=== PATIENT | male | born 1965 | race Caucasian/White ===

== ENCOUNTER 2021-07-17 14:36 | Outpatient (REF) | payer OTHER, SELFPAY | END 2021-07-17 14:37 | disposition home or self-care (01) | LOC: HO.CT 14:36 | PROVIDERS: PCP Internal Medicine; Visit Provider Physician Assistant Medical | DX: Z12.2 Encounter for screening for malignant neoplasm of respiratory organs (principal); Z87.891 Personal history of nicotine dependence | CPT/HCPCS: G0296 ==

== ENCOUNTER 2022-01-07 06:42 | Outpatient (REF) | payer OTHER, SELFPAY ==
[2022-01-07 06:57] LABS: MANUAL DIFF FLAG NO
[2022-01-07 07:56] LABS: Basophils Percent Auto 0.9 % (0-2); Eosinophils Absolute Auto 0.1 X10*3/uL (0.0-0.4); Eosinophils Percent Auto 2.2 % (0-4); Hematocrit 40.1 % (42.0-52.0); Hemoglobin 13.7 g/dl (14.0-18.0); Imm Gran Abs Auto 0.01 X10*3/uL (0.00-0.03); Imm Gran Pct Auto 0.2 % (0.0-0.4); Immature Retic Fraction 7.5 % (2.3-13.4); Lymphocytes Absolute Auto 1.7 X10*3/uL (1.2-4.9); Lymphocytes Percent Auto 36.8 % (20-40); Mean Corpuscular HGB Conc 34.2 g/dl (31.0-36.0); Mean Corpuscular Hemoglobin 31.3 pg (27.0-33.0); Mean Corpuscular Volume 91.6 fL (80.0-98.0); Mean Platelet Volume 10.2 fL (9.4-12.4); Monocytes Absolute Auto 0.4 X10*3/uL (0.1-1.2); Monocytes Percent Auto 9.2 % (2-11); Neutrophils Absolute Auto 2.4 x10*3/uL (2.0-8.3); Neutrophils Percent Auto 50.7 % (45-73); Platelet Count 245 X10*3/uL (160-400); Red Blood Count 4.38 X10*6/uL (4.60-5.80); Red Cell Distribution Width 12.4 % (11.0-16.0); Reticulocyte Percent 1.8 % (0.5-1.8); Reticulocytes Absolute 0.078 X10*6/uL (0.026-0.095); White Blood Count 4.7 X10*3/uL (4.8-10.8)
[2022-01-07 08:18] LABS: Alanine Aminotransferase 20 U/L (0-40); Alkaline Phosphatase 75 U/L (39-117); Anion Gap 14 (12-20); Aspartate Amino Transferase 15 U/L (5-37); Bilirubin Total 0.5 mg/dL (0.0-1.0); Blood Urea Nitrogen 14 mg/dL (9-16); Calcium 8.9 mg/dL (8.4-10.2); Carbon Dioxide 23 mmol/L (22-29); Chloride 109 mmol/L (96-108); Cholesterol 218 mg/dL; Estimated Glomerular Filt Rate > 60; Glucose Random 91 mg/dL (60-115); HDL Cholesterol 54 mg/dL; Iron 102 mcg/dL (45-160); LDL Cholesterol Calculated 148 mg/dl; Percent Iron Saturation 32 % (15-50); Potassium 4.7 mmol/L (3.3-5.1); Sodium 141 mmol/L (135-145); Total Iron Binding Capacity 318 mcg/dL (228-428); Total Protein 6.6 g/dL (6.5-8.0); Triglycerides 83 mg/dL; Unsaturated Iron Binding 216 ug/dL
[2022-01-07 08:42] LABS: Ferritin 143 ng/mL (20-250); Free T4 (Free Thyroxine) 0.93 ng/dL (0.71-1.85); Prostate Specific Antigen Scr 0.18 ng/mL (<0.05-4.0)
[2022-01-07 08:47] LABS: Folate 6.3 ng/mL (> or = 4.0); Vitamin B12 271 pg/mL (200-900)
== END 2022-01-07 06:43 | disposition home or self-care (01) ==
LOC: HO.LAB 06:42
PROVIDERS: PCP Internal Medicine; Visit Provider Internal Medicine
DX: Z12.5 Encounter for screening for malignant neoplasm of prostate (principal); E78.00 Pure hypercholesterolemia, unspecified; E78.1 Pure hyperglyceridemia; D64.9 Anemia, unspecified
CPT/HCPCS: 36415; 80053; 80061; 82607; 82728; 82746; 83540; 84153; 84439; 84443; 85025; 85045

== ENCOUNTER 2022-01-08 07:45 | Outpatient (REF) | payer OTHER, SELFPAY ==
[2022-01-08 08:10] LABS: Appearance Urine Clear; Color Urine Yellow; Glucose Urine UA Negative (Negative); Leukocyte Esterase Urine Negative (Negative); Nitrite Urine Negative (Negative); PH 5.5 (5.0-9.0); Specific Gravity - Urine >= 1.030 (1.005-1.025); Urine Blood Negative (Negative); Urine Ketones Negative (Negative); Urine Protein Negative (Neg-Trace)
[2022-01-08 08:15] LABS: Bacteria Urine None Seen (None Seen); Hyaline Casts Urine 0-2 /LPF (0-2); RBC Urine 0-2 /HPF (0-2); Squamous Epithelial Cell Urine 0-2 /HPF (0-2); WBC Urine 0-5 /HPF (0-5)
== END 2022-01-08 07:46 | disposition home or self-care (01) ==
LOC: HO.LNP 07:45
PROVIDERS: Visit Provider Internal Medicine
DX: E78.1 Pure hyperglyceridemia (principal)
CPT/HCPCS: 81001

== ENCOUNTER 2023-01-05 09:06 | Outpatient (AMB) | payer OTHER, SELFPAY ==
--- NOTE | 2023-01-05 09:16 | A.OFFPC_ITS ---
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 Hand: Not Required per policy Accompanied by: Self / Same As Patient Allergies No Known Allergies Allergy (Verified 01/05/23 09:17) Medication List - Last Reconciled 01/05/23 by Damaris Vazquez MD No Known Home Meds Tobacco use date assessed: 01/05/23 Dental Screening Dental Screen Date: 01/05/23 Did you have a dental visit in the last 12 months?: No Did you have a dental problem in the last 6 months where you did not have access to dental care?: No Was dental information given to patient?: Patient has dentist HPI Annual Exam HPI Details 57-year-old overweight male with a histo ry of anemia hypercholesterolemia coming in for follow-up last seen in December 2021. Colonoscopy up-to-date [address] [facility] Medical History Personal history of nicotine dependence Tubular adenoma of colon (~2018) Anemia Hypertriglyceridemia Overweight (BMI 25.0-29.9) Surgical History History of colonoscopy Family History Mother Lung cancer Father Glioblastoma Brother No problems noted. Sister No problems noted. Sister No problems noted. Daughter No problems noted. Daughter No problems noted. Social History (Updated 01/05/23 @ 09:52 by Damaris Vazquez MD) Housing: Apartment Alcohol intake: current Patient Tobacco Use Status: Former Tobacco user Quit Date: 2018 Tobacco use type: Cigarette Years Smoked: (onset 14yo, 1ppd x 39yrs, 35+PYH, quit 2019) e-Cigarette/Vaping Use: Never Used Second Hand Smoke Exposure: No service: No Current occupational status: employed Cognitive needs: No Hearing needs: No Vision needs: Yes Questionnaire PHQ-9 Over the last 2 weeks, how often have you been bothered by any of the following problems? 1. Little interest or pleasure in doing things: not at all 2. Feeling down, depressed, or hopeless: not at all 3. Trouble falling or staying asleep, or sleeping too much: not at all 4. Feeling tired or having little energy: not at all 5. Poor appetite or overeating: not at all 6. Feeling bad about yourself - or that you are a failure or have let yourself or your family down: not at all 7. Trouble concentrating on things, such as reading the newspaper or watching television: not at all 8. Moving or speaking so slowly that other people could have noticed. Or the opposite - being so fidgety or restless that you have been moving around a lot more than usual: not at all 9. Thoughts that you would be better off or of hurting yourself in some way: not at all Total score: 0 Depression Screening Interpretation: Negative Source: Developed by Drs. Guerrero Lin, Zuleika Ann, Nino Moreno and colleagues, with an educational juan carlos from [employer]. Thrive Questionnaire Date Thrive assessed: 01/05/23 I am a: Patient What is your living situation today?: I have a steady place to live Within the past 12 months, did the food you bought not last and you didn't have the money to get more?: Never true Within the past 12 months, did you worry whether your food would run out before you got money to buy more?: Never true Do you have trouble paying for medicines?: No Do you have trouble getting transportation to medical appointments?: No Do you have trouble paying your heating and electricity bill?: No Do you have trouble taking care of your child, family member or friend?: No Do you have trouble with day-to-day activities such as bathing, preparing meals, shopping, managing finances, etc.?: No Are you currently unemployed and looking for a job?: No Are you interested in more education?: No Please select the resources that you would like help with: None AUDIT C Alcohol Use Questionnaire (AUDIT-C) 1. How often do you have a drink containing alcohol?: 2-3 times a week 2. How many drinks containing alcohol do you have on a typical day when you are drinking?: 3 or 4 3. How often do you have six or more drinks on one occasion?: Never Total Score: 4 FLORA-7 AMB Questionnaire FLORA-7 Date FLORA - 7 assessed: 01/05/23 Feeling nervous, anxious, or on edge: 0 = Not at all Not being able to stop or control worryin = Not at all Worrying too much about different things: 0 = Not at all Trouble relaxin = Not at all Being so restless that it is hard to sit still: 0 = Not at all Becoming easily annoyed or irritable: 0 = Not at all Feeling afraid as if something awful might happen: 0 = Not at all Total FLORA-7 score (0-4 normal; 5-9 mild; 10-14 moderate; 15-21 severe): 0 Source: Developed by Drs. Guerrero Lin, Zuleika Ann, Nino Moreno and colleagues, with an educational juan carlos from [employer]. Review of Systems Const Denies poor appetite and Denies weakness Eyes Denies no additional complaints ENT Reports Normal hearing present, Denies dizziness, Denies nasal congestion, Denies tinnitus and Denies sore throat Card Denies chest pain, Denies syncope, Denies rapid heart rate and Denies dyspnea Resp Denies cough and Denies dyspnea GI Denies change in stool character, Reports constipation, Denies diarrhea, Denies nausea and Denies vomiting Denies dysuria and Denies urinary frequency Neuro Reports Normal hearing present, Denies confusion, Denies dizziness, Denies syncope and Denies weakness Psych Denies confusion Physical exam (Primary Care) Vital Signs: Last Vital Signs Pulse 78 01/05/23 09:17 BP 138/82 01/05/23 09:17 Pulse Ox 99 01/05/23 09:17 Oxygen Delivery Method Room Air 01/05/23 09:17 BMI result Body Mass Index 26.4 Tobacco/Smoking Status: Tobacco use Status Tobacco use date assessed 01/05/23 01/05/23 09:18 Patient Tobacco Use Status Former Tobacco user 01/05/23 09:18 Tobacco use type Cigarette 01/05/23 09:18 e-Cigarette/Vaping Use Never Used 01/05/23 09:18 PHQ-9: PHQ-9 Score PHQ-9: Total score 0 01/05/23 09:27 Depression Screening Interpretation: Negative Thrive Assessment: Date of Thrive Assessment Date Thrive assessed 01/05/23 01/05/23 09:18 Const General: No confusion Orientation/consciousness: No confusion HENMT Head: Yes normocephalic Ears: external ears normal and TM's normal bilaterally Face and sinus: Yes normal facial exam Mouth: moist mucous membranes Throat: Yes tonsils normal Eyes Conjunctivae: conjunctivae normal Pupils: Equal, round and reactive pupils present and Pupil accommodation reflex normal Direct Ophthalmoscopy: normal light reflex Neck Neck: No lymphadenopathy Thyroid: Thyroid normal Chest Chest palpation & inspection: normal inspection of the chest Resp Effort & Inspection: normal respiratory effort and no audible wheezes Auscultation: clear to auscultation bilaterally, no crackles, no wheezes and lung sounds not diminished Cardio Rate: regular rate Rhythm: regular rhythm Peripheral pulses: radial pulses present and dorsalis pedis present GI Other: guaiac negative, prostrate N Palpation (GI): no masses Auscultation: normal bowel sounds and normoactive bowel sounds Rectal Exam - Male: Yes deferred Skin General skin exam: no rashes or lesions noted Rashes: no rashes Neuro General: No confusion Cranial nerves: Yes Equal, round and reactive pupils present and Yes Normal hearing present Cognition (Neuro): normal cognition Gait exam (Neuro): Normal gait present Motor exam (neuro): 5/5 motor strength present throughout Deep tendon reflexes (DTR's): Right brachioradialis reflex intensity grade: 2+, Left brachioradialis reflex intensity grade: 2+, Right patellar reflex intensity grade: 2+ and Left patellar reflex intensity grade: 2+ Extrem General: No edema Assessment and Plan Assessment & Plan (1) Annual physical exam: Code(s): Z00.00 - Encounter for general adult medical examination without abnormal findings (2) Anemia: Code(s): D64.9 - Anemia, unspecified Plan: Continue to monitor (3) Hypertriglyceridemia: Code(s): E78.1 - Pure hyperglyceridemia Plan: Avoid fried foods, chicken skin, eggs, butter margarine, pastries and meat. Be it pork or beef they have a lot of cholesterol LDL goal of less than 130 and triglyceride of less than 150 (4) Personal history of nicotine dependence: Comment: (Former smoker, onset 14, 1ppd x 39yrs, 35PYH, quit 2019, +fam hx lung ca) Code(s): Z87.891 - Personal history of nicotine dependence Plan: Patient is advised to have lung cancer screening. (5) Plantar fasciitis, bilateral: Code(s): M72.2 - Plantar fascial fibromatosis Plan: Discussed about the problem as well as conservative and aggressive measures. Orders: Orders Complete Blood Count Auto Diff 01/02/23 D64.9 - Anemia, unspecified IRON PROFILE 01/02/23 D64.9 - Anemia, unspecified Reticulocyte Count 01/02/23 D64.9 - Anemia, unspecified Free T4 (Free Thyroxine) 01/02/23 D64.9 - Anemia, unspecified Comprehensive Met. Panel 01/02/23 D64.9 - Anemia, unspecified Lipid Panel 01/02/23 E78.00 - Pure hypercholesterolemia, unspecified, E78.1 - Pure hyperglyceridemia Prostate Specific Antigen Scr 01/02/23 E78.1 - Pure hyperglyceridemia Vitamin B12 and Folate 01/02/23 D64.9 - Anemia, unspecified Thyroid Stimulating Hormone 01/02/23 E78.1 - Pure hyperglyceridemia Ferritin 01/02/23 E78.1 - Pure hyperglyceridemia Referrals Thoracic Surgery Referral Z87.891 - Personal history of nicotine dependence Coding Level of Care Code Est Pt Prev Care 40-64y(06977) Diagnoses Annual physical exam Z00.00 Anemia D64.9 Hypertriglyceridemia E78.1 Personal history of nicotine dependence Z87.891 Plantar fasciitis, bilateral M72.2
[2023-01-05 09:17] VITALS: BP 138/82; PULSE 78; O2SAT 99; BMI 26.4
== END 2023-01-05 10:08 | disposition home or self-care (01) ==
PROVIDERS: Visit Provider Internal Medicine
DX: Z00.00 Encounter for general adult medical examination without abnormal findings (principal); D64.9 Anemia, unspecified; E78.1 Pure hyperglyceridemia; Z87.891 Personal history of nicotine dependence; M72.2 Plantar fascial fibromatosis
CPT/HCPCS: 99396

== ENCOUNTER 2023-10-31 07:17 | Outpatient (REF) | payer OTHER, SELFPAY | END 2023-10-31 07:18 | disposition home or self-care (01) | LOC: HO.CT 07:17 | PROVIDERS: PCP Internal Medicine; Visit Provider Internal Medicine | DX: Z13.89 Encounter for screening for other disorder (principal) ==

== ENCOUNTER 2024-01-09 08:37 | Outpatient (AMB) | payer OTHER, SELFPAY ==
[2024-01-09 08:38] VITALS: BP 142/90; PULSE 86; O2SAT 96; BMI 26.9
--- NOTE | 2024-01-09 08:38 | MHC.PC.OV ---
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 Required: No Accompanied by: Self / Same As Patient Allergies No Known Allergies Allergy (Verified 01/09/24 08:40) Medication List - Last Reconciled 01/09/24 by Damaris Vazquez MD ascorbic acid (vitamin C) 1 g PO Q6H calcium carbonate (Calcium 600) 600 mg PO DAILY cholecalciferol (vitamin D3) 25 mcg PO DAILY cyanocobalamin (vitamin B-12) 1,000 mcg PO DAILY Tobacco use date assessed: 01/09/24 Dental Screening Dental Screen Date: 01/09/24 Did you have a dental visit in the last 12 months?: Yes Did you have a dental problem in the last 6 months where you did not have access to dental care?: No Was dental information given to patient?: Patient has dentist HPI Annual Exam HPI Details 58-year-old overweight male with a history of anemia, hypertriglyceridemia smoking history coming in for physical exam last seen in 12/29/2022. Patient's last colonoscopy was in September 2018. cT scan claustrophobia , PFSH Medical History (Updated 01/09/24 @ 08:55 by Damaris Vazquez MD) Personal history of nicotine dependence Tubular adenoma of colon (~2018) Anemia Hypertriglyceridemia Overweight (BMI 25.0-29.9) Surgical History History of colonoscopy Family History Mother Lung cancer Father Glioblastoma Brother No problems noted. Sister No problems noted. Sister No problems noted. Daughter No problems noted. Daughter No problems noted. Social History (Updated 01/09/24 @ 09:05 by Damaris Vazquez MD) Housing: Apartment Alcohol intake: current Comment: 3x a week 1-2 glasses of wine Patient Tobacco Use Status: Former Tobacco user Tobacco use type: Cigarette Years Smoked: (onset 14yo, 1ppd x 39yrs, 35+PYH, quit 2018) e-Cigarette/Vaping Use: Never Used Second Hand Smoke Exposure: No service: No Current occupational status: employed Cognitive needs: No Hearing needs: No Vision needs: Yes Questionnaire PHQ-9 Over the last 2 weeks, how often have you been bothered by any of the following problems? 1. Little interest or pleasure in doing things: not at all 2. Feeling down, depressed, or hopeless: not at all 3. Trouble falling or staying asleep, or sleeping too much: not at all 4. Feeling tired or having little energy: not at all 5. Poor appetite or overeating: not at all 6. Feeling bad about yourself - or that you are a failure or have let yourself or your family down: not at all 7. Trouble concentrating on things, such as reading the newspaper or watching television: not at all 8. Moving or speaking so slowly that other people could have noticed. Or the opposite - being so fidgety or restless that you have been moving around a lot more than usual: not at all 9. Thoughts that you would be better off or of hurting yourself in some way: not at all Total score: 0 Source: Developed by Drs. Guerrero Lin, Zuleika Ann, Nino Moreno and colleagues, with an educational juan carlos from [employer]. Thrive Questionnaire Date Thrive assessed: 01/03/24 I am a: Patient What is your living situation today?: I have a steady place to live Within the past 12 months, did the food you bought not last and you didn't have the money to get more?: Never true Within the past 12 months, did you worry whether your food would run out before you got money to buy more?: Never true Do you have trouble paying for medicines?: No Do you have trouble getting transportation to medical appointments?: No Do you have trouble paying your heating and electricity bill?: No Do you have trouble taking care of your child, family member or friend?: No Do you have trouble with day-to-day activities such as bathing, preparing meals, shopping, managing finances, etc.?: No Are you currently unemployed and looking for a job?: No Are you interested in more education?: I choose not to answer this question Please select the resources that you would like help with: None Currently or been in a relationship where the following occur: No concerns reported THRIVE Score: 0 AUDIT C Alcohol Use Questionnaire (AUDIT-C) 1. How often do you have a drink containing alcohol?: 2-3 times a week 2. How many drinks containing alcohol do you have on a typical day when you are drinking?: 1 or 2 3. How often do you have six or more drinks on one occasion?: Never Total Score: 3 FLORA-7 AMB Questionnaire FLORA-7 Date FLORA - 7 assessed: 01/09/24 Feeling nervous, anxious, or on edge: 0 = Not at all Not being able to stop or control worryin = Not at all Worrying too much about different things: 0 = Not at all Trouble relaxin = Not at all Being so restless that it is hard to sit still: 0 = Not at all Becoming easily annoyed or irritable: 0 = Not at all Feeling afraid as if something awful might happen: 0 = Not at all Total FLORA-7 score (0-4 normal; 5-9 mild; 10-14 moderate; 15-21 severe): 0 Source: Developed by Drs. Guerrero Lin, Zuleika Ann, Nino Moreno and colleagues, with an educational juan carlos from [employer]. Review of Systems Const Denies poor appetite and Denies weakness Eyes Denies no additional complaints ENT Reports Normal hearing present, Denies dizziness, Denies nasal congestion, Denies tinnitus and Denies sore throat Card Denies chest pain, Denies syncope, Denies rapid heart rate and Denies dyspnea Resp Denies cough and Denies dyspnea GI Denies change in stool character, Reports constipation, Denies diarrhea, Denies nausea and Denies vomiting Denies dysuria and Denies urinary frequency Neuro Reports Normal hearing present, Denies confusion, Denies dizziness, Denies syncope and Denies weakness Psych Denies confusion Physical exam (Primary Care) Vital Signs: Last Vital Signs Pulse 86 01/09/24 08:38 BP 142/90 H 01/09/24 08:38 Pulse Ox 96 01/09/24 08:38 Oxygen Delivery Method Room Air 01/09/24 08:38 BMI result Body Mass Index 26.9 Tobacco/Smoking Status: Tobacco use Status Tobacco use date assessed 01/09/24 01/09/24 08:44 Patient Tobacco Use Status Former Tobacco user 01/09/24 08:38 Tobacco use type Cigarette 01/09/24 08:38 e-Cigarette/Vaping Use Never Used 01/09/24 08:38 PHQ-9: PHQ-9 Score PHQ-9: Total score 0 01/09/24 08:38 Thrive Assessment: Date of Thrive Assessment Date Thrive assessed 01/03/24 01/09/24 08:38 Currently or been in a relationship where the following occur: No concerns reported Const General: No confusion Orientation/consciousness: No confusion HENMT Head: Yes normocephalic Ears: external ears normal and TM's normal bilaterally Face and sinus: Yes normal facial exam Mouth: moist mucous membranes Throat: Yes tonsils normal Eyes Conjunctivae: conjunctivae normal Pupils: Equal, round and reactive pupils present and Pupil accommodation reflex normal Direct Ophthalmoscopy: normal light reflex Neck Neck: No lymphadenopathy Thyroid: Thyroid normal Chest Chest palpation & inspection: normal inspection of the chest Resp Effort & Inspection: normal respiratory effort and no audible wheezes Auscultation: clear to auscultation bilaterally, no crackles, no wheezes and lung sounds not diminished Cardio Rate: regular rate Rhythm: regular rhythm Peripheral pulses: radial pulses present and dorsalis pedis present GI Palpation (GI): no masses Auscultation: normal bowel sounds and normoactive bowel sounds Rectal Exam - Male: Yes deferred Skin General skin exam: no rashes or lesions noted Rashes: no rashes Neuro General: No confusion Cranial nerves: Yes Equal, round and reactive pupils present and Yes Normal hearing present Cognition (Neuro): normal cognition Gait exam (Neuro): Normal gait present Motor exam (neuro): 5/5 motor strength present throughout Deep tendon reflexes (DTR's): Right brachioradialis reflex intensity grade: 2+, Left brachioradialis reflex intensity grade: 2+, Right patellar reflex intensity grade: 2+ and Left patellar reflex intensity grade: 2+ Extrem General: No edema Assessment and Plan Assessment & Plan (1) Annual physical exam: Code(s): Z00.00 - Encounter for general adult medical examination without abnormal findings Plan: Patient is advised to eat healthy, keep well hydrated, keep active and have adequate sleep. (2) Anemia: Code(s): D64.9 - Anemia, unspecified Plan: Patient was advised repeat blood work (3) Hypercholesterolemia: Code(s): E78.00 - Pure hypercholesterolemia, unspecified Plan: Avoid fried foods, chicken skin, eggs, butter margarine, pastries and meat. Be it pork or beef they have a lot of cholesterol (4) Personal history of nicotine dependence: Comment: (Former smoker, onset 14, 1ppd x 39yrs, 35PYH, quit 2019, +fam hx lung ca) Code(s): Z87.891 - Personal history of nicotine dependence Plan: Discussed with the patient about CT scan of the chest for lung cancer screening but concern that patient has missed a couple of them (5) Tubular adenoma of colon: Onset Date: ~2019 Comment: (2TAs on 2019 scope) Code(s): D12.6 - Benign neoplasm of colon, unspecified Plan: Patient is reminded about colonoscopy Orders: Orders Ferritin Today E78.00 - Pure hypercholesterolemia, unspecified IRON PROFILE Today E78.00 - Pure hypercholesterolemia, unspecified Reticulocyte Count Today E78.00 - Pure hypercholesterolemia, unspecified Free T4 (Free Thyroxine) Today E78.00 - Pure hypercholesterolemia, unspecified Lipid Panel Today E78.00 - Pure hypercholesterolemia, unspecified Comprehensive Met. Panel Today E78.00 - Pure hypercholesterolemia, unspecified Complete Blood Count Auto Diff Today E78.00 - Pure hypercholesterolemia, unspecified Thyroid Stimulating Hormone Today E78.00 - Pure hypercholesterolemia, unspecified Vitamin B12 and Folate Today E78.00 - Pure hypercholesterolemia, unspecified Prostate Specific Antigen Scr Today E78.00 - Pure hypercholesterolemia, unspecified Referrals Gastroenterology Referral D12.6 - Benign neoplasm of colon, unspecified Coding Level of Care Code Est Pt Prev Care 40-64y(35013) Diagnoses Annual physical exam Z00.00 Anemia D64.9 Hypercholesterolemia E78.00 Personal history of nicotine dependence Z87.891 Tubular adenoma of colon D12.6
[2024-01-09 08:59] VITALS: BP 130/70
== END 2024-01-09 09:42 | disposition home or self-care (01) ==
PROVIDERS: PCP Internal Medicine; Visit Provider Internal Medicine
DX: Z00.00 Encounter for general adult medical examination without abnormal findings (principal); D64.9 Anemia, unspecified; E78.00 Pure hypercholesterolemia, unspecified; Z87.891 Personal history of nicotine dependence; D12.6 Benign neoplasm of colon, unspecified

== ENCOUNTER → 2024-01-09 08:37 | Outpatient (BNVA) | payer OTHER, SELFPAY | PROVIDERS: PCP Internal Medicine; Visit Provider Internal Medicine ==

== ENCOUNTER 2024-06-26 06:47 | Day surgery (SDC) | payer OTHER, SELFPAY ==
--- OUTSIDE RECORDS SUMMARY | 2024-05-30 13:58 | XMS_ITS | Clinical Summary ---
Author Organization [facility] Address [address] [place] [address] Care Team Providers Care Systems Analyst Developer Name Role Phone Unavailable Primary Care Provider Unavailabl e Allergies No known active allergies Medications Medication Sig Dispensed Refills Start Date End Date Status diazepam (VALIUM) tablet 5 mg TAKE 1 TABLET BY MOUTH BEFORE MRI DIRECTED 0 10/10/2017 Active GAVILYTE-C 240 g solution DIRECTED OVER THE SPECIFIED TIME. ORALLY 1 DAY(S) 0 06/08/2018 Active CHANTIX STARTING MONTH NAYA 0.5 MG X 11 & 1 MG X 42 tablet USE DIRECTED 0 06/16/2018 A ctive Active Problems Problem Noted Date Diagnosed Date Separation of left acromioclavicular joint 10/14 Incomplete tear of left rotator cuff 09/27/2017 Family History Medical History Relation Name Comments Cancer Father Cancer Mother Relation Name Status Comments Father Mother Social History Tobacco Use Types Packs/Day Years Used Date Smoking Tobacco: Never Smokeless Tobacco: Never Sex and Gender Information Value Date Recorded Sex Assigned at Not on file Gender Identity Not on file Sexual Orientation Not on file Plan of Treatment Health Maintenance Due Date Last Done Comments Hepatitis C Screening 1965 COVID-19 Vaccine (#1) 1965 Depression Screening 1976 Preventative Health Evaluation 01/22/1982 DTap / Tdap / Td (1 - Tdap) 01/22/1983 Colon Cancer Screening (Colonoscopy) 01/22/2009 Shingrix-Zoster Vaccine (1 of 2) 01/22/2014 Influenza Vaccine (#1) 2023 RSV Adult > 60+ Yrs or Pregn ant (1 - 1-dose 75+ series) 01/22/2039 Hepatitis B Vaccines Aged Out No long er eligible based on patient's age to complete this topic Pneumococcal Vaccine Aged Out No long er eligible based on patient's age to complete this topic RSV Ped < 20 months Aged Out No longe r eligible based on patient's age to complete this topic
--- OUTSIDE RECORDS SUMMARY | 2024-05-30 13:58 | XMS_ITS ---
Author Organization [facility] Address [address] [place] [address] Care Team Providers Care Clinical Trial Educator Name Role Phone Po Damaris FUCHS Primary Care Provider Juan Gonsalez Jr Unavailable [phone] ALLERGIES No Known Allergies REASON FOR VISIT Patient presents today for a colon screening MEDICATIONS Medication SIG (Take, Route, Frequency, Duration) Notes Start Date End Date Status MiraLax (colon prep) 17 GM/SCOOP mixed with Gatorade or Crystal Light Orally begin at 5:00 p.m. the day before the procedure for 1 day 04/25/2024 Active IMMUNIZATIONS Vaccine Route Administration Date Status Comme nts Influenza Unknown 04/25/2024 Refused SOCIAL HISTORY Tobacco Use: Social History Observation Description Date Details (start date - stop date) Former Smoker NA - NA Sex Assigned At : Social History Observation Description Sex Assigned At Unknown Tobacco Use/Smoking Question Answer Notes Patient is a former smoker Alcohol Screen Question Answer Notes Did you have a drink contain ing alcohol in the past year? Yes How often did you have a dri nk containing alcohol in the past year? 2 to 3 times a week (3 points) How many drinks did you have on a typical day when you were drinking in the past year? 1 or 2 drinks (0 point) Points 3 Interpretation Negative VITAL SIGNS BMI 27.70 kg/m2 04/25/2024 Blood pressure systolic 000 mm Hg 04/25/19 25 Blood pressure diastolic 00 mm Hg 025 Height 72 in 04/25/2024 Temperature 97.5 degrees Fahrenheit 04/25/19 25 Weight 204 lb 4 oz lbs 04/25/2024 Encounters Encounter Location Date Provider Diagnosis [facility] [address] [place] [address] 04/25/2024 Juan Mosley Jr Encounter for other preprocedural examination Z01.818 ; Colon cancer screening Z12.11 and Personal history of colonic polyps Z86.0100 ASSESSMENTS Encounter Date Diagnosis Assessment Notes Treatment Notes Treatment Clinical Notes 04/25/2024 Encounter for other preprocedural examination (ICD-10 - Z01.818) 04/25/2024 Colon cancer screening (ICD-10 - Z12.11) Colonoscopy material was printed 04/25/2024 Personal history of colonic polyps (ICD-10 - Z86.0100) PLAN OF TREATMENT Medication Medication Name Sig Start Date Stop Date Notes MiraLax (colon prep) 17 GM/SCOOP mixed with Gatorade or Crystal Light Orally begin at 5:00 p.m. the day before the procedure for 1 day 04/25/2024 Treatment Notes Assessment Notes Colon cancer screening Colonoscopy mater ial was printed Future Test Test Name Order Date COLONOSCOPY 04/25/2024 Next Appt Details Follow Up: 1 Year, Reason: Provider Name:Juan portillo Jr, 06/26/2024 08:10:00 AM, [address] [place] [address] , [place], [place], [phone], Progress Notes * Examination Category Sub-Category Detail Notes General Examination GENERAL APPEARANCE: in no ac jordan distress HEAD: normocephalic EYES: sclera non-icteric NECK/THYROID: no lymphadenopathy HEART: S1, S2 normal, no mu rmurs CHEST: normal shape and exp ansion LUNGS: clear to auscultatio n bilaterally ABDOMEN: soft, nontender, non distended, bowel sounds present, no organomegaly SKIN: anicteric EXTREMITIES: no clubbing, cyanosi s, or edema PSYCH: cognitive function i ntact ORAL CAVITY: mucosa moist
--- OUTSIDE RECORDS SUMMARY | 2024-05-30 13:58 | XMS_ITS | Patient Health Record ---
Author Organization [facility] Address [address] [place] [address] Care Team Providers Care Animal Pathology Teacher Name Role Phone Damaris Vazquez MD Primary Care Provider Juan Gonsalez Jr Unavailable ALLERGIES No Known Allergies REASON FOR REFERRAL No Information MEDICATIONS Medication SIG (Take, Route, Frequency, Duration) Notes Start Date End Date Status MiraLax (colon prep) 17 GM/SCOOP mixed with Gatorade or Crystal Light Orally begin at 5:00 p.m. the day before the procedure for 1 day 04/25/2024 Active IMMUNIZATIONS Vaccine Route Administration Date Status Comme nts Influenza Unknown 03/22/2018 Administered Influenza Unknown 04/25/2024 Refused SOCIAL HISTORY Tobacco [...] drinks (0 point) Points 3 Interpretation Negative PROBLEMS Problem Type ICD Code Onset Dates Problem Status W/U Status Risk SNOMED Code Notes Problem Colon cancer screening (Z12.11) Active confirmed 502526174 Problem Encounter for other preprocedural examination (Z01.818) Active confirmed [id number] VITAL SIGNS Temperature 97.5 degrees Fahrenheit 04/25/2024 Blood pressure diastolic 00 mm Hg 04/25/2024 Height 72 in 04/25/2024 Blood pressure systolic 000 mm Hg 04/25/2024 Weight 204 lb 4 oz lbs 04/25/2024 BMI 27.70 kg/m2 04/25/2024 Encounters Encounter Location Date Provider Diagnosis [facility] [address] [place] [address] 04/25/2024 Juan Mosley Jr Encounter for other preprocedural examination Z01.818 ; Colon cancer screening Z12.11 and Personal history of colonic polyps Z86.0100 ASSESSMENTS Encounter Date Diagnosis Assessment Notes Treatment Notes Treatment Clinical Notes 04/25/2024 Colon cancer screening (ICD-10 - Z12.11) Colonoscopy material was printed 04/25/2024 Encounter for other preprocedural examination (ICD-10 - Z01.818) 04/25/2024 Personal history of colonic polyps (ICD-10 - Z86.0100) PLAN OF TREATMENT Future Test Test Name Order Date COLONOSCOPY 06/08/2018 COLONOSCOPY 04/25/2024 Next Appt Details Provider Name:Juan portillo Jr, 06/26/2024 08:10:00 AM, [address] [facility] , [place], [place], [phone], Insurance Providers Payer Name Payer Address Payer Phone Subscriber Number Group Number Insured Name Patient Relationship to Insured Coverage Start Date Coverage End Date [facility] [address] [place] [phone] [id number] TATIANNA BROTHERS Self - patient is the insured MEDICAL (GENERAL) HISTORY Medical History History ICD Code Colonoscopy 09/27, tubular adenomas x2, f rina-year followup Hyperlipidemia Plantar fasciitis Elevated BMI Anemia Surgical History Surgery Date(Month/Year)
[2024-06-22 08:42] VITALS: BMI 27.7
[2024-06-26 07:49] VITALS: BP 139/73; PULSE 73; RESP 16; TEMP 36.7; O2SAT 96; BMI 27.5
--- NOTE | 2024-06-26 08:02 | P.CONAN_ITS ---
[facility] Active Problems Active Problems: All Active Problems Hypercholesterolemia (Acute) Plantar fasciitis, bilateral (Acute) Annual physical exam (Acute) COVID-19 virus infection (Acute) Knee pain (Acute) Tubular adenoma of colon (Acute ~2018) Overweight (BMI 25.0-29.9) (Acute) Anemia (Acute) Hypertriglyceridemia (Acute) Personal history of nicotine dependence (Acute) Past Medical History Medical History Plantar fasciitis Personal history of nicotine dependence Tubular adenoma of colon (~2018) Anemia Hypertriglyceridemia Overweight (BMI 25.0-29.9) Family History Family History Mother Lung cancer Father Glioblastoma Brother No problems noted. Sister No problems noted. Sister No problems noted. Daughter No problems noted. Daughter No problems noted. Surgical History Surgical History History of colonoscopy History of Problems with Anesthesia: No Social History Social History Housing: Apartment Alcohol intake: current Comment: 3x a week 1-2 glasses of wine Patient Tobacco Use Status: Former Tobacco user Tobacco use type: Cigarette Years Smoked: (onset 14yo, 1ppd x 39yrs, 35+PYH, quit 2018) e-Cigarette/Vaping Use: Never Used Second Hand Smoke Exposure: No service: No Current occupational status: employed Cognitive needs: No Hearing needs: No Vision needs: Yes Meds Allergies Allergy/AdvReac Type Severity Reaction Status Date / Time No Known Allergies Allergy Verified 06/26/24 07:49 Home Medications ?Medication ?Instructions ?Recorded ?Confirmed ?Last Taken ?Type No Known Home Meds 06/22/24 06/26/24 Unknown History Exam Height,Weight and Vital Signs: Height 6 ft Weight 92 kg Last Vital Signs Temp 98.1 F 06/26/24 07:49 Pulse 73 06/26/24 07:49 Resp 16 06/26/24 07:49 BP 139/73 06/26/24 07:49 Pulse Ox 96 06/26/24 07:49 O2 Del Method Room Air 06/26/24 07:49 Airway Mallampati Class: II TM Dist: >3cm Neck ROM: Full Loose/Missing/Broken Teeth: No Heart: RRR Lungs: CTA Assessment and Plan Assessment Anesthesia Assessment: Anesthesia Plan Discussed and Chart Reviewed Final Anesthetic Review History of Problems with Anesthesia: No NPO: Yes ASA Class: II Final Preanesthetic Review: Meds/Allgs Chart Reviewed, Consent Obtained/Reviewed and Anes Risks/Benef Reviewed Patient Risk: Low Procedure Risk: Low Anesthetic Plan Anesthetic Plan: MAC:
--- NOTE | 2024-06-26 08:09 | MHC.SHP ---
Pre-Procedural Eval Section A - 24 Hr Update-Section A only Date of Service: 06/26/24 Section B - Complete if H&P > 30 days Chief Complaint: screening Details of Present Illness: see H&P no changes Relevant Family History (Specify if Yes): No Relevant Social History: None Present Medications: see Short Stay Collaborative assessment Medical History: No relevant PMH History of Previous Operations: No relevant previous surgery Allergies: Allergies Allergy/AdvReac Type Severity Reaction Status Date / Time No Known Allergies Allergy Verified 06/26/24 07:49 Review of Systems Sugical H&P ROS: Negative: Constitution, Cardiovascular, Respiratory, Neurological, Psychiatric, Hem-Onc, Allergic/Immunologic, Gastrointestinal, Genitourinary, Musculoskeletal, Integumentary, Endocrine and Eyes/Ears/Nose/Throat Exam Surgical H&P Exam: Normal: HEENT, Normal: Heart, Normal: Lungs, Normal: Extremities, Normal: Abdomen, Normal: Skin and Normal: Neurological Plan Diagnosis/Plan: Unchanged I have reviewed the history and physical and performed a pertinent physical examination on my patient. No changes have occurred unless specified. Time Spent With Patient Time: Total time managing care of this patient today ____ minutes.
[2024-06-26 08:48] VITALS: BP 104/54; PULSE 65; RESP 18; TEMP 36.5; O2SAT 97
[2024-06-26 09:00] VITALS: BP 95/62; PULSE 68; RESP 18; TEMP 36.3; O2SAT 97
--- NOTE | 2024-06-26 10:20 | OP_ITS ---
DATE OF SERVICE: 06/26/2024 SURGEON: Juan Mosley MD INDICATIONS: Colon cancer screening. PREOPERATIVE DIAGNOSIS: POSTOPERATIVE DIAGNOSIS: PROCEDURE PERFORMED: Colonoscopy to the terminal ileum. ESTIMATED BLOOD LOSS: COMPLICATIONS: ANESTHESIA: Monitored anesthesia care. ASSISTANTS: SPECIMENS: DESCRIPTION OF PROCEDURE: History and physical performed. The risks and benefits of the procedure were explained to the patient. Informed consent was obtained. The patient was placed in the left lateral decubitus position. A digital rectal exam was performed and was found to be normal. The Olympus pediatric videocolonoscope was introduced into the rectum and advanced to the cecum. The cecum was identified by transillumination, palpation, and identification of ileocecal valve. Examination was performed. The scope was removed. He tolerated the procedure well and was taken to recovery room in stable condition. FINDINGS: The terminal ileum was examined and appeared normal. The visualized colonic mucosa was normal. The quality of the prep was good. No polyps were identified. Retroflexed examination showed small internal hemorrhoids. IMPRESSION: Normal colonoscopy. RECOMMENDATIONS: 1. Follow up as needed. 2. Repeat colonoscopy is recommended in 10 years for average-risk individuals. MD CONG Blair/ML / [id number]
== END 2024-06-26 09:21 | disposition home or self-care (01) ==
PROVIDERS: PCP Internal Medicine; Visit Provider Internal Medicine Gastroenterology
PROC: 0DJD8ZZ Inspection of Lower Intestinal Tract, Via Natural or Artificial Opening Endoscopic (ICD-10-PCS; CPT 45378; principal; 2024-06-26 08:10)
DX: Z12.11 Encounter for screening for malignant neoplasm of colon (principal); Z86.0101 Personal history of adenomatous and serrated colon polyps; K64.8 Other hemorrhoids; D64.9 Anemia, unspecified; E78.5 Hyperlipidemia, unspecified; E66.3 Overweight; Z68.27 Body mass index [BMI] 27.0-27.9, adult; M72.2 Plantar fascial fibromatosis; Z87.891 Personal history of nicotine dependence
CPT/HCPCS: 45378; J2003; J2704

== ENCOUNTER 2025-01-15 10:37 | Outpatient (AMB) | payer OTHER, SELFPAY ==
--- OUTSIDE RECORDS SUMMARY | 2024-06-26 04:10 | XMS_ITS ---
Author Organization [facility] Address [address] [place] [address] Care Team Providers Care Bridge Engineer Name Role Phone Damaris Vazquez MD Primary Care Provider Juan Gonsalez Jr REASON FOR VISIT screening Encounters Encounter Location Date Provider Diagnosis [facility] [place] [address] [place], [place] [phone] 06/26/2024 Juan Mosley Jr Colon cancer screening Z12.11 and Personal history of adenomatous and serrated colon polyps Z86.0101 Assessments Encounter Date Diagnosis (ICD Code) Assessment Notes Treatment Notes Treatment Clinical Notes Section Notes 06/26/2024 Colon cancer screening (ICD-10 - Z12.11) 06/26/2024 Personal history of adenomatous and serrated colon polyps (ICD-10 - Z86.0101) Plan Of Treatment No Information Progress Notes * TATIANNA BROTHERSDOB: 4 (59 yo M)Acc No.[id number]:06/26/2024 COLON WITH MAC Patient: TATIANNA WATT Provider: Joey Mosley MD :1965 A ge:59 Y S ex:Male Date:06/26/2024 Address: [address] [place] Pcp:Damaris Vazquez MD Subjective: * Chief Complaints: [...] 06/26/2024 Generated for Sherman westfall/Delonte/Jaretitting on: 1 12:50 PM EDT
[2025-01-15 11:35] VITALS: BP 116/68; PULSE 73; TEMP 36.6; O2SAT 98; BMI 27.1
--- NOTE | 2025-01-15 11:35 | AM.OFFWIN_ITS ---
Intake Vital Signs 01/15/25 11:35 Height 6 ft Weight 200 lb BMI 27.1 BP 116/68 Blood Pressure Location Rt brachial Position Sitting Pulse 73 Pulse Source Pulse Oximeter Temp 97.8 F Temp Source Oral Pulse Oximetry (%) 98 Oxygen Delivery Method Room Air Intake Visit Reasons: EP Left thumb cut with knife Patient Tobacco Use Status: Former Tobacco user Allergies No Known Allergies Allergy (Verified 01/15/25 11:37) Do you need a note to return to daycare/school/sports/work: No HPI HPI Comments History of Present Illness Details History of Present Illness - The patient is a 59-year-old male pres enting with a laceration on the thumb. - The injury occurred a few hours before the visit due to a utility knife accide nt at work. - Initial wound care included washing wi th soap and water and applying an antiseptic. - The wound was deep with significant bl eeding, not on a blood thinner. - The patient last received a tetanus va ccination in 2017 Physical Exam General: Cooperative, healthy appearing, comfortable, no acute distress and well developed Orientation: Patient oriented x3 Limitations: No limitations Head: Normal to inspection Ears: Hearing grossly normal bilaterally Nose: Normal External nose present Face and sinus: Normal facial exam Eyes: Appearance normal, both eyes and all related structures Neck: Normal visual inspection and Yes full ROM Respiratory: Normal respiratory effort and able to speak in complete sentences. Skin: No rashes or lesions noted Neuro: Patient oriented x3 Extremities: Normal to inspection, left thumb tip with 1.5cm curved lac with bleeding, no FB noted, full sensation intact and full ROM NVI, no damage to nail. Review of Systems - Integumentary: Reports deep laceration on thumb with bleeding. All systems reviewed and are unremarkable except as noted in HPI [facility] Medical History Plantar fasciitis Personal history of nicotine dependence Tubular adenoma of colon (~2018) Anemia Hypertriglyceridemia Overweight (BMI 25.0-29.9) Surgical History History of colonoscopy Family History Mother Lung cancer Father Glioblastoma Brother No problems noted. Sister No problems noted. Sister No problems noted. Daughter No problems noted. Daughter No problems noted. Social History Housing: Apartment Alcohol intake: current Comment: 3x a week 1-2 glasses of wine Patient Tobacco Use Status: Former Tobacco user Tobacco use type: Cigarette Years Smoked: (onset 14yo, 1ppd x 39yrs, 35+PYH, quit 2019) e-Cigarette/Vaping Use: Never Used Second Hand Smoke Exposure: No service: No Current occupational status: employed Cognitive needs: No Hearing needs: No Vision needs: Yes Physical Exam Vital Signs: Last Vital Signs Temp 97.8 F 01/15/25 11:35 Pulse 73 01/15/25 11:35 BP 116/68 01/15/25 11:35 Pulse Ox 98 01/15/25 11:35 Oxygen Delivery Method Room Air 01/15/25 11:35 BMI result Body Mass Index 27.1 Office Procedures AMB Laceration Repair Details: Bleeding controlled, cleaned and irrigated wound with sterile saline and betadine, digital block of left thumb not enough for full numbing so went along wound edges with local. Applied 5, 6-0 poly sutures to tip of left thumb with ease. Laceration repair performed by: Anastacia Burris Explained risks and benefits to parent: Yes Informed consent given: Yes Consent signed: No Location: left thumb tip Length: 1.5cm Sedation: No Anesthesia: 2% lidocaine Irrigation: saline Preparation: betadine Wound exploration: none Deep closure: No Skin closure: nylon Technique: simple interruped Topical treatment: triple antibiotic Tetanus toxoid ordered: Yes Patient tolerated procedure: well Complications: [place] [id number] Repair <2.5cm Procedure code (CPT) selection complete Office Meds lidocaine HCl 20 mg/mL (2 %) injection solution Performing Provider: Anastacia Burris PA-C Performing Location: [facility] Administered by: Anastacia Burris PA-C on 01/15/25 12:31 Dose Route Admin Location Dispensed Lot Number Expiration Date [facility] Coding Director 2 mL Infiltration 4 mL [id number] 09/08/26 Total Dispensed Waste 4 mL 0 % Comments: 2 vials of 2% lidocaine used for numbing left thumb Immunizations Boostrix Tdap 2.5 Lf unit-8 mcg-5 Lf/0.5 mL intramuscular syringe Performing Provider: Anastacia Burris PA-C Performing Location: [facility] Administered by: Parag Mascorro CMA on 01/15/25 12:37 Dose Route Admin Location Dispensed Lot Number Expiration Date NDC Coding Director 0.5 mL IM Left Deltoid 0.5 mL [id number] 05/23/26 26601-389-72 [employer] Total Dispensed Waste 0.5 mL 0 % VIS Given Date VIS Provided VIS Publication Date 01/15/25 Single Vaccine 20 Eligibility Eligibility Date Funding Source Not [facility] Eligible 01/15/25 Private Assessment & Plan Assessment & Plan (1) Laceration of thumb: Code(s): S61.019A - Laceration without foreign body of unspecified thumb without damage to nail, initial encounter Qualifiers: Damage to nail status: without damage Encounter type: initial encounter Foreign body presence: without foreign body Laterality: left Qualified Code(s): S61.012A - Laceration without foreign body of left thumb without damage to nail, initial encounter Plan: Patient was informed and verbally consented to the use of an ambient scribe for clinic note documentation during this visit. 1. Laceration On Thumb - Keep wound clean and dry, return in 10 days for removal of sutures. Cover if you go out in public but may leave open to air while at home. - Five (5) 6-0 sutures placed. 2. Tetanus Prophylaxis - Administered Tdap booster due to last vaccination in 2017. Orders: Orders TDaP Immunization Today S61.019A - Laceration without foreign body of unspecified thumb without damage to nail, initial encounter AMB Laceration Repair Today S61.019A - Laceration without foreign body of unspecified thumb without damage to nail, initial encounter Coding Level of Care Code Est Pt Level 4 (57706) Diagnoses Laceration of left thumb without foreign body without damage to nail, initial encounter S61.012A Damage to nail status: without damage Encounter type: initial encounter Foreign body presence: without foreign body Laterality: left CPT Codes Office Procedure - Laceration Repair 1: [id number] Repair <2.5cm ([id number])
--- OUTSIDE RECORDS SUMMARY | 2025-01-15 12:51 | XMS_ITS | Clinical Summary ---
Author Organization [facility] Address [address] [place] [address] Care Team Providers Care Plastic Fabricator Name Role Phone Unavailable Primary Care Provider [...] (1 of 2) 01/22/2014 Influenza Vaccine (#1) 2024 RSV Adult > 60+ Yrs or Pregn [...]
--- OUTSIDE RECORDS SUMMARY | 2025-01-15 12:51 | XMS_ITS | Patient Health Record ---
Author Organization [facility] Address [address] [place] [address] Care Team Providers Care Manufacturing Analyst Name Role Phone Damaris Vazquez MD Primary Care Provider Juan Gonsalez Jr [phone] Allergies No Known Allergies Reason For Referral No Information Medications Medication SIG (Take, Route, Frequency, Duration) Notes Start Date End Date Status MiraLax (colon prep) 17 GM/SCOOP mixed with Gatorade or Crystal Light Orally begin at 5:00 p.m. the day before the procedure for 1 day 04/25/2024 Active Immunizations Vaccine Route Administration Date Status Comme nts Influenza Unknown 03/22/2018 Administered Influenza Unknown 04/25/2024 Refused Social History Tobacco Use: Social History Observation Description Date Details (start date - stop date) Former Smoker NA - NA Tobacco Use/Smoking Question Answer Notes Patient is [...] drinks (0 point) Points 3 Interpretation Negative Problems Problem Type SNOMED Code ICD Code Onset Dates Problem Status W/U Status Risk Notes Problem 639689173 Colon cancer screening (Z12.11) Active confirmed Problem 659089144 Encounter for other preprocedural examination (Z01.818) Active confirmed Vital Signs Temperature 97.5 degrees Fahrenheit 04/25/2024 Blood pressure diastolic 00 mm Hg 04/25/2024 Height 72 in 04/25/2024 Blood pressure systolic 000 mm Hg 04/25/2024 Weight 204 lb 4 oz lbs 04/25/2024 BMI 27.70 kg/m2 04/25/2024 Encounters Encounter Location Date Provider Diagnosis [facility] [place] [place] Outpatient [address] [place], [place] [id number] 06/26/2024 Juan Mosley Jr Colon cancer screening Z12.11 and Personal history of adenomatous and serrated colon polyps Z86.0101 [facility] [address] [place] [address] 04/25/2024 Juan Mosley Jr Encounter for other preprocedural examination Z01.818 ; Colon cancer screening Z12.11 and Personal history of colonic polyps Z86.0100 Assessments Encounter Date Diagnosis (ICD Code) Assessment Notes Treatment Notes Treatment Clinical Notes Section Notes 06/26/2024 Colon cancer screening (ICD-10 - Z12.11) 06/26/2024 Personal history of adenomatous and serrated colon polyps (ICD-10 - Z86.0101) 04/25/2024 Colon cancer screening (ICD-10 - Z12.11) Colonoscopy material was printed We discussed colonoscopy today. We discussed risks and benefits of the procedure today. He understands these and agrees to proceed. 04/25/2024 Encounter for other preprocedural examination (ICD-10 - Z01.818) We discussed colonoscopy today. We discussed risks and benefits of the procedure today. He understands these and agrees to proceed. 04/25/2024 Personal history of colonic polyps (ICD-10 - Z86.0100) We discussed colonoscopy today. We discussed risks and benefits of the procedure today. He understands these and agrees to proceed. Plan Of Treatment Future Test Test Name Order Date COLONOSCOPY 06/08/2018 COLONOSCOPY 04/25/2024 Insurance Providers Payer Name Payer Address Payer Phone Subscriber Number Group Number Insured Name Patient Relationship to Insured Coverage Start Date Coverage End Date [facility] [address] [place] [facility] [place] [phone] [id number] TATIANNA BROTHERS Self - patient is the insured Medical (General) History Medical History History ICD Code Colonoscopy 09/27, tubular adenomas x2, f rina-year followup Hyperlipidemia Plantar fasciitis Elevated BMI Anemia Surgical History Surgery Date(Month/Year)
== END 2025-01-15 12:39 | disposition home or self-care (01) ==
PROVIDERS: PCP Internal Medicine; Visit Provider Physician Assistant
DX: S61.012A Laceration without foreign body of left thumb without damage to nail, initial encounter (principal)

== ENCOUNTER → 2025-01-15 10:37 | Outpatient (BNVA) | payer OTHER, SELFPAY | PROVIDERS: PCP Internal Medicine; Visit Provider Physician Assistant | DX: S61.012A Laceration without foreign body of left thumb without damage to nail, initial encounter (principal); W26.0XXA Contact with knife, initial encounter; Y93.9 Activity, unspecified; Y92.9 Unspecified place or not applicable; Y99.0 Civilian activity done for income or pay; Z23 Encounter for immunization | CPT/HCPCS: 12001; 90471; 90715; 99212; J2003 ==

== ENCOUNTER 2025-01-26 11:41 | Outpatient (AMB) | payer OTHER, SELFPAY ==
--- OUTSIDE RECORDS SUMMARY | 2024-06-26 04:10 | XMS_ITS ---
Author Organization [facility] Address [address] [place] [address] Care Team Providers Care Intelligence Agent Name Role Phone Damaris Vazquez MD Primary Care Provider Juan Gonsalez Jr REASON FOR VISIT screening Encounters Encounter Location Date Provider Diagnosis [facility] [address] [place], [place] [phone] 06/26/2024 Juan Mosley Jr Colon cancer screening Z12.11 and Personal history of adenomatous and serrated colon polyps Z86.0101 Assessments Encounter Date Diagnosis (ICD Code) Assessment Notes Treatment Notes Treatment Clinical Notes Section Notes 06/26/2024 Colon cancer screening (ICD-10 - Z12.11) 06/26/2024 Personal history of adenomatous and serrated colon polyps (ICD-10 - Z86.0101) Plan Of Treatment No Information Progress Notes * TATIANNA BROTHERSDOB: 4 (60 yo M)Acc No.[id number]:06/26/2024 COLON WITH MAC Patient: TATIANNA WATT Provider: Joey Mosley MD :1965 A ge:59 Y S ex:Male Date:06/26/2024 Address: [address] [place] Pcp:Damaris Vazquez MD Subjective: * Chief Complaints: * 1 . Screening. * Medical History: Objective: * Vitals: Assessment: * Assessment: 1. C olon cancer screening - Z12.11 (Primary) 2 . P ersonal history of adenomatous and serrated colon polyps - Z86.0101 Plan: * Treatment: * Procedure Codes: 4 5378 DIAGNOSTIC COLONOSCOPY, 0529F INTRVL 3+YRS PTS CLNSCP DOCD * * The named appointment provid er may or may not be the originator of this progress note, and it is not deemed complete until electronically signed by the appointment provider. Sign off status: Pending * Provider: Joey Mosley MD Date: 0 06/26/2024 Generated for Sherman westfall/Delonte/Jaretitting on: 1 11:43 AM EDT
--- OUTSIDE RECORDS SUMMARY | 2025-01-26 11:44 | XMS_ITS | Patient Health Record ---
Author Organization [facility] Address [address] [place] [address] Care Team Providers Care Forensic Scientist Name Role Phone Damaris Vazquez MD Primary Care Provider Juan Gonsalez Jr [phone] Allergies No Known Allergies Reason For Referral No Information Medications Medication SIG (Take, Route, Frequency, Duration) Notes Start Date End Date Status MiraLax (colon prep) 17 GM/SCOOP mixed with Gatorade or Crystal Light Orally begin at 5:00 p.m. the day before the procedure; Duration: 1 day 04/25/2024 Active Immunizations Vaccine Route [...] Problem Status W/U Status Risk Notes Problem Colon cancer screening (287845660) Colon cancer screening (Z12.11) Active confirmed Problem Pre-procedure evaluation check (143336595) Encounter for other preprocedural examination (Z01.818) Active confirmed Vital Signs Temperature 97.5 degrees Fahrenheit 04/25/2024 Blood pressure diastolic 00 mm Hg 04/25/2024 Height 72 in 04/25/2024 Blood pressure systolic 000 mm Hg 04/25/2024 Weight 204 lb 4 oz lbs 04/25/2024 BMI 27.70 kg/m2 04/25/2024 Encounters Encounter Location Date Provider Diagnosis [facility] [place] Outpatient [address], [place] [id number] 06/26/2024 Juan Mosley Jr Colon cancer screening Z12.11 and Personal history of adenomatous and serrated colon polyps Z86.0101 [facility] [address] [place] [address] 04/25/2024 Juan Mosley Jr Encounter for other [...] Insured Coverage Start Date Coverage End Date [facility] [address] [facility] [phone] [id number] TATIANNA BROTHERS Self - patient is the insured Medical (General) History Medical History History ICD Code Colonoscopy 09/27, tubular adenomas x2, f rina-year followup Hyperlipidemia Plantar fasciitis Elevated BMI Anemia Surgical History Surgery Date(Month/Year)
--- OUTSIDE RECORDS SUMMARY | 2025-01-26 11:44 | XMS_ITS | Clinical Summary ---
Author Organization [facility] Address [address] [place] [address] Care Team Providers Care Manager Transportation Planning Name Role Phone Unavailable Primary Care Provider [...]
[2025-01-26 12:52] VITALS: BP 130/78; PULSE 78; RESP 16; TEMP 36.8; O2SAT 98; BMI 27.0
--- NOTE | 2025-01-26 12:52 | AM.OFFWIN_ITS ---
Intake Vital Signs 01/26/25 12:52 Height 6 ft Weight 199 lb BMI 27.0 BP 130/78 Blood Pressure Location Rt brachial Position Sitting Respiration 16 Pulse 78 Pulse Source Pulse Oximeter Temp 98.3 F Temp Source Oral Pulse Oximetry (%) 98 Oxygen Delivery Method Room Air Intake Visit Reasons: EP, WC stitch removal Intake Note: Pt is here today WC stitches removal Lt thumb Patient Tobacco Use Status: Former Tobacco user Allergies No Known Allergies Allergy (Verified 01/26/25 12:53) HPI HPI Comments History of Present Illness Details This is a 60-year-old male who presented to the walk-in clinic for suture removal. Patient had 5 sutures placed to his left thumb on 01/15/2025. He was instructed to have the sutures removed in 7-10 days. Patient reports some mild left thumb pain but denies any erythema or drainage. Patient is otherwise feeling well without any new complaints. [facility] Medical History Plantar fasciitis Personal history of nicotine dependence Tubular adenoma of colon (~2018) Anemia Hypertriglyceridemia Overweight (BMI 25.0-29.9) Surgical History History of colonoscopy Family History Mother Lung cancer Father Glioblastoma Brother No problems noted. Sister No problems noted. Sister No problems noted. Daughter No problems noted. Daughter No problems noted. Social History Housing: Apartment Alcohol intake: current Comment: 3x a week 1-2 glasses of wine Patient Tobacco Use Status: Former Tobacco user Tobacco use type: Cigarette Years Smoked: (onset 14yo, 1ppd x 39yrs, 35+PYH, quit 2018) e-Cigarette/Vaping Use: Never Used Second Hand Smoke Exposure: No service: No Current occupational status: employed Cognitive needs: No Hearing needs: No Vision needs: Yes Review of Systems Const All systems reviewed & are unremarkable except as noted in HPI and below Reports no additional complaints Eyes Reports no additional complaints ENT Reports no additional complaints Card Reports no additional complaints Resp Reports no additional complaints GI Reports no additional complaints Reports no additional complaints Musc Reports no additional complaints Skin/Breast Reports system reviewed and no additional complaints, except as documented Neuro Reports no additional complaints Psych Reports no additional complaints Endo Reports no additional complaints Farhat/Lymph Reports no additional complaints Aller/Immun Reports no additional complaints Physical Exam Exam Exam: Vital signs reviewed. Constitutional: Non-toxic appearing. No acute distress. Well-developed and well-nourished. HEENT: Normocephalic and atraumatic. EOMI. Skin: Warm and dry. No rashes or lesions noted. There is a 1.5 cm laceration to the left thumb tip with [address] Neck: Full and painless range of motion. No cervical lymphadenopathy. Cardio: Regular rate. Pulmonary: No respiratory distress. No accessory muscle usage. Musculoskeletal: Normal range of motion in joints throughout the body. No deformity or other signs of injury. Neuro: Alert and oriented x4. Cranial nerves 2-12 grossly intact. No focal deficits appreciated. Psych: Normal mood and affect. Vital Signs: Last Vital Signs Temp 98.3 F 01/26/25 12:52 Pulse 78 01/26/25 12:52 Resp 16 01/26/25 12:52 BP 130/78 01/26/25 12:52 Pulse Ox 98 01/26/25 12:52 Oxygen Delivery Method Room Air 01/26/25 12:52 BMI result Body Mass Index 27.0 Assessment & Plan Assessment & Plan (1) Encounter for removal of sutures: Code(s): Z48.02 - Encounter for removal of sutures Plan 60-year-old male who presented to the walk-in clinic for suture removal from the left thumb tip placed on 01/15/2025. 5 sutures were removed in their entirety without difficulty, patient tolerated procedure well. Laceration appears to be well healed without any purulent or bloody drainage without any surrounding erythema. Patient instructed to keep the area clean and dry and apply bacitracin to the area and cover with a bandage. Coding Level of Care Code Est Pt Level 3 (72508) Diagnoses Encounter for removal of sutures Z48.02
== END 2025-01-26 14:13 | disposition home or self-care (01) ==
PROVIDERS: PCP Internal Medicine; Visit Provider Physician Assistant Medical
DX: Z48.02 Encounter for removal of sutures (principal)

== ENCOUNTER → 2025-01-26 11:41 | Outpatient (BNVA) | payer OTHER, SELFPAY | PROVIDERS: PCP Internal Medicine | DX: S61.012D Laceration without foreign body of left thumb without damage to nail, subsequent encounter (principal); X58.XXXD Exposure to other specified factors, subsequent encounter; Z48.02 Encounter for removal of sutures | CPT/HCPCS: 99212 ==